=== PATIENT | female | born 1960 | race African-American/Black ===

== ENCOUNTER 2016-06-20 10:19 | Emergency (ER) | payer BC ==
[~2016-06-20] VITALS: Ht 157.5 cm; Wt 93.9 kg
--- NOTE | 2016-06-20 10:58 | RAD ---
Portable chest, 06/20/2016: History: Chest pain The heart size and pulmonary vascularity are normal. No pulmonary infiltrates are seen. There is no evidence of pleural fluid. Mild spurring is present in the spine. IMPRESSION: No acute cardiopulmonary abnormality is detected.
[2016-06-20 11:05] LABS: BASO # 0.1 x10^3/uL (0.0-0.2); BASO % 1 % (0-3); EOS % 2 % (0-3); HEMATOCRIT 41.1 % (36.0-47.0); HEMOGLOBIN 13.5 g/dL (12.0-15.5); LYMPH # 2.5 x10^3/uL (1.0-4.8); LYMPH % 25 % (24-48); MEAN CORPUSCULAR HEMOGLOBIN 27 pg (25-35); MEAN CORPUSCULAR HGB CONC 33 g/dL (31-37); MEAN CORPUSCULAR VOLUME 83 fL (79-100); MONO % 9 % (0-9); NEUT % 63 % (31-73); PLATELET COUNT 282 x10^3/uL (140-400); RED BLOOD COUNT 4.95 x10^6/uL (3.50-5.40); WHITE BLOOD COUNT 9.9 x10^3/uL (4.0-11.0)
[2016-06-20 11:12] LABS: CALCIUM 9.5 mg/dL (8.5-10.1); CREATININE 1.1 mg/dL (0.6-1.0); GFR 61.9; POTASSIUM 3.8 mmol/L (3.5-5.1)
--- NOTE | 2016-06-20 11:13 | EKG ---
[facility] [address] [place] [address] Test Date: 2016-06-20 Test Time: 10:29:11 Pat Name: UZIEL BERNAL Department: Room: Gender: F President [employer]: : 1960 Requested By: LUCINDA TILLMAN Order Number: [id number] Reading MD: Roselia Shaffer Measurements Intervals Asher Rate: 102 P: 55 [place]: 140 QRS: 54 QRSD: 78 T: 64 QT: 326 QTc: 429 Interpretive Statements SINUS TACHYCARDIA LEFT ATRIAL ABNORMALITY RI6.01 Unconfirmed report No previous ECG available for comparison Electronically Signed On 06-23-2016 0:01:23 RESIDENT DIRECTOR by Roselia Shaffer
[2016-06-20 11:21] LABS: PROTHROMBIN TIME PATIENT 12.6 SEC (11.7-14.0)
[2016-06-20 11:25] LABS: CKMB MASS 28.7 ng/mL (0.0-3.6)
[2016-06-20 11:27] LABS: CKMB INDEX 1.9 % (0-4)
[2016-06-20 11:28] LABS: ALBUMIN 4.2 g/dL (3.4-5.0); DIRECT BILIRUBIN 0.1 mg/dL (0.0-0.2); MAGNESIUM 2.1 mg/dL (1.8-2.4); TOTAL BILIRUBIN 0.4 mg/dL (0.2-1.0)
--- NOTE | 2016-06-20 11:28 | PHYS DOC ---
Past Medical History Past Medical History: No Pertinent History Past Surgical History: Alcohol Use: Occasionally Drug Use: None Adult General Chief Complaint Chief Complaint: CHEST WALL PAIN HPI HPI Patient is a 56 year old -[place] female who presents with chest pain for the last 5 days of her left side it was into her arm and her neck, she denies any nausea or diaphoresis with this. She does have orthopnea the last 2 weeks with lower show any edema. She also complains of shortness of breath when she gets up to ambulate. She been taking Advil without any relief. She is on no medicines other than [id number] vitamins. She does not have a primary care physician this time either. Review of Systems Review of Systems Constitutional: Denies fever or chills [] Eyes: Denies change in visual acuity, redness, or eye pain [] HENT: Denies nasal congestion or sore throat [] Respiratory: Denies cough, positive for shortness of breath [] Cardiovascular: No additional information not addressed in HPI [] GI: Denies abdominal pain, nausea, vomiting, bloody stools or diarrhea [] : Denies dysuria or hematuria [] Musculoskeletal: Denies back pain or joint pain [] Integument: Denies rash or skin lesions [] Neurologic: Denies headache, focal weakness or sensory changes [] Endocrine: Denies polyuria or polydipsia [] Current Medications Current Medications Current Medications Medications (Trade) Dose Ordered Sig/Jacquelin Start Time Stop Time Status Last Admin Dose Admin Sodium Chloride (Iv Sodium Chloride 0.9% 1000ml Bag) 1,000 ml @ 1,000 mls/hr 1X ONCE 06/20/16 13:30 06/20/16 14:29 DC 06/20/16 13:44 1,000 MLS/HR Allergies Allergies Allergies Coded Allergies Type Severity Reaction Last Updated Verified No Known Drug Allergies 06/20/16 No Physical Exam Physical Exam Constitutional: Well developed, well nourished, no acute distress, non-toxic appearance. [] HENT: Normocephalic, atraumatic, bilateral external ears normal, oropharynx moist, no oral exudates, nose normal. [] Eyes: PERRLA, EOMI, conjunctiva normal, no discharge. [] Neck: Normal range of motion, no tenderness, supple, no stridor. [] Cardiovascular:Heart rate regular rhythm, no murmur [] Lungs & Thorax: Bilateral breath sounds clear to auscultation [] Abdomen: Bowel sounds normal, soft, no tenderness, no masses, no pulsatile masses. [] Skin: Warm, dry, no erythema, no rash. [] Back: Palpation of the muscles between her shoulder and back, no CVA tenderness. [] Extremities: No tenderness, no cyanosis, no clubbing, ROM intact, 1+ bilaterally or actually edema. [] Neurologic: Alert and oriented X 3, normal motor function, normal sensory function, no focal deficits noted. [] Psychologic: Affect normal, judgement normal, mood normal. [] Current Patient Data Vital Signs Vital Signs Date Time Temp Pulse Resp B/P Pulse Ox O2 Delivery O2 Flow Rate FiO2 06/20/16 10:28 98.1 89 18 159/92 99 Room Air 98.1 Lab Values Laboratory Tests Test 06/20/16 10:45 White Blood Count 9.9x10^3/uL (4.0-11.0) Red Blood Count 4.95x10^6/uL (3.50-5.40) Hemoglobin 13.5g/dL (12.0-15.5) Hematocrit 41.1% (36.0-47.0) Mean Corpuscular Volume 83fL (79-100) Mean Corpuscular Hemoglobin 27pg (25-35) Mean Corpuscular Hemoglobin Concent 33g/dL (31-37) Red Cell Distribution Width 16.0% (11.5-14.5) H Platelet Count 282x10^3/uL (140-400) Neutrophils (%) (Auto) 63% (31-73) Lymphocytes (%) (Auto) 25% (24-48) Monocytes (%) (Auto) 9% (0-9) Eosinophils (%) (Auto) 2% (0-3) Basophils (%) (Auto) 1% (0-3) Neutrophils # (Auto) 6.3x10^3uL (1.8-7.7) Lymphocytes # (Auto) 2.5x10^3/uL (1.0-4.8) Monocytes # (Auto) 0.8x10^3/uL (0.0-1.1) Eosinophils # (Auto) 0.2x10^3/uL (0.0-0.7) Basophils # (Auto) 0.1x10^3/uL (0.0-0.2) Prothrombin Time 12.6SEC (11.7-14.0) Prothrombin Time INR 1.0 (0.8-1.1) D-Dimer (Nishi) 0.41ug/mlFEU (0.00-0.50) Sodium Level 143mmol/L (136-145) Potassium Level 3.8mmol/L (3.5-5.1) Chloride Level 105mmol/L (98-107) Carbon Dioxide Level 25mmol/L (21-32) Anion Gap 13 (6-14) Blood Urea Nitrogen 16mg/dL (7-20) Creatinine 1.1mg/dL (0.6-1.0) H Estimated GFR (Cockcroft-Gault) 61.9 Glucose Level 120mg/dL (70-99) H Calcium Level 9.5mg/dL (8.5-10.1) Magnesium Level 2.1mg/dL (1.8-2.4) Total Bilirubin 0.4mg/dL (0.2-1.0) Direct Bilirubin 0.1mg/dL (0.0-0.2) Aspartate Amino Transferase (AST) 30U/L (15-37) Alanine Aminotransferase (ALT) 50U/L (14-59) Alkaline Phosphatase 59U/L (46-116) Creatine Kinase 1496U/L (26-192) H Creatine Kinase MB (Mass) 28.7ng/mL (0.0-3.6) H Creatine Kinase MB Relative Index 1.9% (0-4) Troponin I Quantitative 0.021ng/mL (0.000-0.055) GC-Lop-E-Type Natriuretic Peptide 79pg/mL (0-124) Total Protein 8.0g/dL (6.4-8.2) Albumin 4.2g/dL (3.4-5.0) Lipase 231U/L (73-393) Thyroid Stimulating Hormone (TSH) 2.394uIU/mL (0.358-3.74) Laboratory Tests 06/20/16 10:45 Laboratory Tests 06/20/16 10:45 EKG EKG EKG shows sinus tachycardia with rate [address] elevations or T- wave inversions, as interpreted by me. Radiology/Procedures Radiology/Procedures [facility] [address] [place] [address] IMAGING REPORT Signed PATIENT: UZIEL BERNAL ACCOUNT: [id number] : 1960 LOCATION: ER AGE: 56 SEX: F EXAM STATUS: REG ER ORD. PHYSICIAN: LUCINDA TILLMAN MD REASON: chest pain PROCEDURE: PORTABLE CHEST 1V Portable chest, 06/20/2016: History: Chest pain The heart size and pulmonary vascularity are normal. No pulmonary infiltrates are seen. There is no evidence of pleural fluid. Mild spurring is present in the spine. IMPRESSION: No acute cardiopulmonary abnormality is detected. DICTATED and SIGNED BY: GILBERTO BARNES MD DATE: 06/20/16 1056 CC: LUCINDA TILLMAN MD; NO PCP ~ Impressions: Muscle skeletal pain Course & Med Decision Making Course & Med Decision Making Pertinent Labs and Imaging studies reviewed. (See chart for details) Her symptoms were going on for several days. Her EKG, d-dimer blood work do not show any Allergies Other Than an Elevated CK. She Has Been Exercising. She Is Instructed to Hold off on Exercise for Several Days, She Is Being Prescribed [place] and Flexeril she is instructed not to use both of them together not to drive her car while taking either of them. She is to return to ER for worsening pain, shortness of breath or other concerns. She is agreeable plan being discharged in stable condition. Dragon Disclaimer Dragon Disclaimer This electronic medical record was generated, in whole or in part, using a voice recognition dictation system. Departure Departure Disposition: 01 HOME, SELF-CARE Referrals: NO PCP (PCP) Patient Instructions: Muscle Strain Scripts Hydrocodone/Apap 5-325 ([place] 5-325 Tablet)1 Each Tablet1 Tab PO PRN Q6HRS PRN PAIN #20 TAB Ref 0 Prov:LUCINDA TILLMAN MD 06/20/16 Cyclobenzaprine Hcl 10 Mg Tablet1 Tab PO TID #30 TAB Prov:LUCINDA TILLMAN MD 06/20/16 LUCINDA TILLMAN MD Jun 20, 2016 11:28
[2016-06-20] MEDS ORDERED: IV NORMAL SALINE 1000ML BAG 1,000 ML IV ONE (13:30)
[2016-06-20 14:54] VITALS: BP 191/109
[2016-06-20] MEDS ORDERED: CYCL10TA2 PO (14:58)
[2016-06-20] MEDS ORDERED: HYDR-971 PO (14:58)
== END 2016-06-20 15:35 | disposition home or self-care (01) ==
LOC: ER 10:19
DX: R07.9 Chest pain, unspecified (principal); R06.02 Shortness of breath
CPT/HCPCS: 36415; 71010; 80048; 80076; 82553; 83690; 83735; 83880; 84443; 84484; 85027; 85379; 85610; 93005; 96360; 99285; J7030